=== PATIENT | female | born 1945 | race African-American/Black ===

== ENCOUNTER 2019-09-11 14:50 | Emergency (ER) | payer OTHER ==
[~2019-09-11] VITALS: Ht 170.2 cm; Wt 100.0 kg
[~2019-09-11 14:50] MED LIST: ASPIRIN; ATENOLOL; LISINOPRIL; METFORMIN
[2019-09-11] MEDS ORDERED: ASPIRIN 81MG TABLET PO ONE (17:00)
[2019-09-11 17:30] LABS: BASOPHILS % 0.8 % (0.0-2.0); EOSINOPHILS % 0.7 % (0.0-5.0); HEMATOCRIT. 38.2 % (36.0-48.0); HEMOGLOBIN. 12.6 g/dL (12.0-16.0); MEAN CORPUSCULAR HEMOGLOBIN 28.9 pg (28.0-32.0); MEAN CORPUSCULAR VOLUME 87.4 fL (81.0-99.0); MEAN PLATELET VOLUME 8.5 fl (7.4-10.4); MONOCYTES % 7.1 % (2.0-8.0); NEUTROPHILS % 51.4 % (40.0-76.0); PLATELET 215 x1000/uL (130-400); RED BLOOD CELL COUNT 4.37 mill/uL (4.2-5.4); RED CELL DISTRIBUTION WIDTH 14.4 % (11.6-14.6)
[2019-09-11 17:38] LABS: CHLORIDE 106 mEq/L (98-107)
[2019-09-11 19:41] VITALS: BP 151/68
== END 2019-09-11 20:49 | disposition short-term general hospital (02) ==
LOC: ER 15:00
DX: R07.9 Chest pain, unspecified (principal); E11.9 Type 2 diabetes mellitus without complications; J44.9 Chronic obstructive pulmonary disease, unspecified; I10 Essential (primary) hypertension; Z79.82 Long term (current) use of aspirin; Z91.010 Allergy to peanuts
CPT/HCPCS: 36415; 71045; 80053; 82962; 83880; 84443; 84484; 85025; 93005; 99285; Z7610

== ENCOUNTER 2025-05-09 17:31 | Inpatient (IN) | payer OTHER ==
[~2025-05-09] VITALS: Ht 175.3 cm; Wt 100.4 kg
[2025-05-09 17:36] VITALS: O2SAT 99
[2025-05-09 19:12] LABS: BASOPHILS % 0.6 % (0.0-2.0); EOSINOPHILS % 0.8 % (0.0-5.0); HEMATOCRIT. 42.8 % (36.0-48.0); HEMOGLOBIN. 14.1 g/dL (12.0-16.0); LYMPHOCYTES % 36.8 % (20.0-50.0); MEAN PLATELET VOLUME 9.1 fl (7.4-10.4); MONOCYTES % 7.3 % (2.0-8.0); NEUTROPHILS % 54.5 % (40.0-76.0); PLATELET 196 x1000/uL (130-400); RED BLOOD CELL COUNT 4.92 mill/uL (4.2-5.4); RED CELL DISTRIBUTION WIDTH 13.7 % (11.6-14.6)
[2025-05-09] MEDS: PANTOPRAZOLE SODIUM 40 MG/VIAL IV ONE (19:23)
[2025-05-09] MEDS: MAGNESIUM/ALUMINUM HYDROXIDE/SIMETHICONE 30ML UDC PO ONE (19:23)
[2025-05-09 19:26] LABS: CREATININE 1.0 mg/dL (0.6-1.0); UREA NITROGEN BLOOD 10 mg/dL (9-23)
[2025-05-09 19:27] LABS: ASPARTATE AMINOTRANSFERASE 16 IU/L (<34)
[2025-05-09 19:28] LABS: BILIRUBIN DIRECT 0.3 mg/dL (<=3.0); BILIRUBIN TOTAL 1.4 mg/dL (0.1-1.0); PROTEIN TOTAL 7.5 g/dL (6.0-8.3)
[2025-05-09 19:32] LABS: TROPONIN I HIGH SENSITIVITY 48 ng/L (3.0-34)
[2025-05-09] MEDS ORDERED: HEPARIN 25,000 UNITS PREMIX 250 ML IV PRN (20:45)
[2025-05-09] MEDS ORDERED: HEPARIN 5000 UNITS/ML VIAL IV SCH (20:45)
[2025-05-09] MEDS ORDERED: IPRATROPIUM/ALBUTEROL 0.5-3(2.5)MG/3ML NEB NEB PRN (21:00)
[2025-05-09] MEDS ORDERED: ONDANSETRON HCL 4MG/2ML INJ IV PRN (21:00)
[2025-05-09 21:10] LABS: TROPONIN I HIGH SENSITIVITY 53 ng/L (3.0-34)
[2025-05-09] MEDS: HEPARIN 80 UNITS/KG BOLUS IV SCH (21:24)
[2025-05-09] MEDS ORDERED: HEPARIN BOLUS PRN aPTT <36 IV (21:30)
[2025-05-09] MEDS ORDERED: HEPARIN BOLUS PRN aPTT 37-44 IV (21:30)
[2025-05-09] MEDS: HEPARIN 25,000 UNITS PREMIX 250 ML IV SCH (21:34)
[2025-05-09 21:49] LABS: BASOPHILS % 0.6 % (0.0-2.0); EOSINOPHILS % 0.6 % (0.0-5.0); HEMATOCRIT. 43.1 % (36.0-48.0); HEMOGLOBIN. 14.5 g/dL (12.0-16.0); LYMPHOCYTES % 39.5 % (20.0-50.0); MEAN PLATELET VOLUME 9.2 fl (7.4-10.4); MONOCYTES % 7.6 % (2.0-8.0); NEUTROPHILS % 51.7 % (40.0-76.0); PLATELET 186 x1000/uL (130-400); RED BLOOD CELL COUNT 4.92 mill/uL (4.2-5.4); RED CELL DISTRIBUTION WIDTH 13.7 % (11.6-14.6)
[2025-05-09] MEDS ORDERED: IPRATROPIUM/ALBUTEROL 0.5-3(2.5)MG/3ML NEB HHN PRN (22:00)
[2025-05-09] MEDS ORDERED: HYDRALAZINE 20MG/ML VIAL IV PRN (22:00)
[2025-05-09] MEDS ORDERED: DEXTROSE 50% WATER 50ML SYRINGE IV PRN (22:00)
[2025-05-09 22:01] LABS: CREATININE 1.0 mg/dL (0.6-1.0)
[2025-05-09 22:02] LABS: UREA NITROGEN BLOOD 9 mg/dL (9-23)
[2025-05-09] MEDS: IOHEXOL-350 100 ML BOTTLE ONE (22:27)
[2025-05-09 22:57] LABS: TRIGLYCERIDE 94.0 mg/dL (0-150)
[2025-05-09 22:58] LABS: LDL CHOLESTEROL 145.0 mg/dL (5-100)
[2025-05-09 22:59] LABS: CREATINE KINASE MB FRACTION 1.3 ng/mL (0.5-3.6); PHOSPHORUS 2.5 mg/dL (2.5-4.9)
[2025-05-09 23:04] LABS: T4 FREE 1.2 ng/dL (0.89-1.76)
[2025-05-09 23:11] LABS: TROPONIN I HIGH SENSITIVITY 81.0 ng/L (3.0-34)
[2025-05-10] VITALS (62 sets, daily range): BP systolic 77–182; BP diastolic 37–142; PULSE 80–110; RESP 12–29; TEMP 36.7–36.9; O2SAT 85–97
[2025-05-10] MEDS ORDERED: BLOOD SUGAR DIAGNOSTIC STRIP TEST SCH
[2025-05-10] MEDS: AMLODIPINE 10MG TABLET PO SCH (01:11)
[2025-05-10] MEDS: LOSARTAN 50 MG TABLET PO SCH (01:12)
[2025-05-10] MEDS: INSULIN LISPRO 100 UNITS/ML SUBCUT SCH ×2 (01:13→08:33)
[2025-05-10] MEDS: MELATONIN 3MG TABLET PO SCH (01:20)
[2025-05-10 03:25] LABS: TROPONIN I HIGH SENSITIVITY 77 ng/L (3.0-34)
[2025-05-10 05:30] LABS: BASOPHILS % 0.4 % (0.0-2.0); EOSINOPHILS % 0.7 % (0.0-5.0); HEMATOCRIT. 40.1 % (36.0-48.0); HEMOGLOBIN. 13.1 g/dL (12.0-16.0); LYMPHOCYTES % 50.3 % (20.0-50.0); MEAN PLATELET VOLUME 9.5 fl (7.4-10.4); MONOCYTES % 6.2 % (2.0-8.0); NEUTROPHILS % 42.4 % (40.0-76.0); PLATELET 190 x1000/uL (130-400); RED BLOOD CELL COUNT 4.61 mill/uL (4.2-5.4); RED CELL DISTRIBUTION WIDTH 13.9 % (11.6-14.6)
[2025-05-10 05:40] LABS: CREATININE 1.0 mg/dL (0.6-1.0)
[2025-05-10 05:41] LABS: UREA NITROGEN BLOOD 10 mg/dL (9-23)
[2025-05-10 05:42] LABS: ASPARTATE AMINOTRANSFERASE 12 IU/L (<34)
[2025-05-10 05:43] LABS: BILIRUBIN TOTAL 1.4 mg/dL (0.1-1.0); PROTEIN TOTAL 6.6 g/dL (6.0-8.3)
[2025-05-10 06:05] LABS: TROPONIN I HIGH SENSITIVITY 62 ng/L (3.0-34)
[2025-05-10] MEDS ORDERED: INSULIN LISPRO 100 UNITS/ML SUBCUT SCH (08:20)
[2025-05-10] MEDS: BLOOD SUGAR DIAGNOSTIC STRIP TEST SCH (08:27)
[2025-05-10] MEDS: PANTOPRAZOLE SODIUM 40 MG/VIAL IV SCH (08:32)
[2025-05-10 09:02] LABS: BG BASE EXCESS 2.0 mmol/L (-2.0-3.0); BG CARBOXYHEMOGLOBIN 0.9 % (0.5-1.5); BG DEOXYHEMOGLOBIN 5.7 % (0.0-5.0); BG FLOW(L/min) 0 L/min; BG HCO3 ACT 25.1 mmol/L (21.0-28.0); BG METHEMOGLOBIN 0.3 % (0.5-1.5); BG OXYGEN SATURATION 94.2 % (94.0-98.0); BG OXYHEMOGLOBIN 93.1 % (94.0-98.0); BG PCO2 34.5 mmHg (32.0-45.0); BG PH 7.479 (7.350-7.450); BG PO2 67.6 mmHg (83.0-108.0); BG SAMPLE SITE RIGHT RADIAL; BG TOTAL HEMOGLOBIN 14.0 g/dL (12.0-16.0); BG VENT MODE ROOM AIR
[2025-05-10] MEDS: INSULIN GLARGINE 100 UNITS/ML SUBCUT SCH (10:17)
[2025-05-10 13:21] LABS: TROPONIN I HIGH SENSITIVITY 31 ng/L (3.0-34)
[2025-05-10 20:08] LABS: TROPONIN I HIGH SENSITIVITY 28 ng/L (3.0-34)
[2025-05-10] MEDS: ATORVASTATIN CALCIUM 40MG TABLET PO SCH (20:45)
[2025-05-11] VITALS (48 sets, daily range): BP systolic 79–153; BP diastolic 27–113; PULSE 62–91; RESP 11–31; TEMP 36.8–37.4; O2SAT 90–98
[2025-05-11 01:39] LABS: TROPONIN I HIGH SENSITIVITY 20 ng/L (3.0-34)
[2025-05-11 06:20] LABS: BASOPHILS % 0.5 % (0.0-2.0); EOSINOPHILS % 1.2 % (0.0-5.0); HEMATOCRIT. 40.3 % (36.0-48.0); HEMOGLOBIN. 13.5 g/dL (12.0-16.0); LYMPHOCYTES % 58.0 % (20.0-50.0); MEAN PLATELET VOLUME 9.7 fl (7.4-10.4); MONOCYTES % 8.1 % (2.0-8.0); NEUTROPHILS % 32.2 % (40.0-76.0); PLATELET 188 x1000/uL (130-400); RED BLOOD CELL COUNT 4.59 mill/uL (4.2-5.4); RED CELL DISTRIBUTION WIDTH 13.9 % (11.6-14.6)
[2025-05-11 06:33] LABS: TROPONIN I HIGH SENSITIVITY 16 ng/L (3.0-34)
[2025-05-11 06:34] LABS: CREATININE 1.1 mg/dL (0.6-1.0)
[2025-05-11 06:35] LABS: UREA NITROGEN BLOOD 10 mg/dL (9-23)
[2025-05-11 06:36] LABS: ASPARTATE AMINOTRANSFERASE 13 IU/L (<34)
[2025-05-11 06:37] LABS: BILIRUBIN TOTAL 1.3 mg/dL (0.1-1.0); PROTEIN TOTAL 6.7 g/dL (6.0-8.3)
[2025-05-11] MEDS ORDERED: LIDOCAINE HCL 1% 20ML VIAL ONE (07:24)
[2025-05-11] MEDS ORDERED: HEPARIN 1000 UNITS/ML 10ML ONE (07:24)
[2025-05-11] MEDS ORDERED: IODIXANOL 320MG/ML 100 ML BOTTLE IV ONE ×2 (07:24→09:34)
[2025-05-11] MEDS ORDERED: FENTANYL CITRATE/PF 50MCG/ML 2ML VIAL ONE (08:25)
[2025-05-11] MEDS ORDERED: MIDAZOLAM HCL 2 MG/2 ML VIAL ONE (08:26)
[2025-05-11 09:18] LABS: TRIGLYCERIDE 164.0 mg/dL (0-150)
[2025-05-11 09:19] LABS: LDL CHOLESTEROL 134.0 mg/dL (5-100)
[2025-05-11 09:23] LABS: T4 FREE 1.07 ng/dL (0.89-1.76)
[2025-05-11 13:19] LABS: TROPONIN I HIGH SENSITIVITY 118 ng/L (3.0-34)
[2025-05-11 21:30] LABS: TROPONIN I HIGH SENSITIVITY 98 ng/L (3.0-34)
[2025-05-12] VITALS (48 sets, daily range): BP systolic 74–145; BP diastolic 29–114; PULSE 68–93; RESP 9–26; TEMP 36.7–36.9; O2SAT 92–100
[2025-05-12] MEDS ORDERED: AMLO10TA80 PO (01:15)
[2025-05-12] MEDS ORDERED: LOSA50TA41 PO (01:15)
[2025-05-12] MEDS ORDERED: ERGO1250 PO (01:15)
[2025-05-12] MEDS ORDERED: ATOR-2 PO (01:15)
[2025-05-12 06:16] LABS: BASOPHILS % 0.4 % (0.0-2.0); EOSINOPHILS % 1.7 % (0.0-5.0); HEMATOCRIT. 37.5 % (36.0-48.0); HEMOGLOBIN. 12.0 g/dL (12.0-16.0); LYMPHOCYTES % 49.4 % (20.0-50.0); MEAN PLATELET VOLUME 9.6 fl (7.4-10.4); MONOCYTES % 7.2 % (2.0-8.0); NEUTROPHILS % 41.3 % (40.0-76.0); PLATELET 153 x1000/uL (130-400); RED BLOOD CELL COUNT 4.25 mill/uL (4.2-5.4); RED CELL DISTRIBUTION WIDTH 13.8 % (11.6-14.6)
[2025-05-12 06:46] LABS: CREATININE 1.0 mg/dL (0.6-1.0); UREA NITROGEN BLOOD 9 mg/dL (9-23)
[2025-05-12] MEDS: APIXABAN 5 MG TABLET PO SCH (10:02)
[2025-05-12] MEDS ORDERED: MAGNESIUM HYDROXIDE 400MG/5ML 30ML UDC PO PRN (22:45)
[2025-05-12] MEDS: ACETAMINOPHEN 325MG TABLET PO PRN (23:29)
[2025-05-12] MEDS: SENNOSIDES/DOCUSATE SOD 8.6/50MG TABLET PO PRN (23:30)
[2025-05-13] VITALS (7 sets, daily range): BP systolic 105–125; BP diastolic 53–74; PULSE 69–94; RESP 12–21; TEMP 36.6–36.9; O2SAT 95–99
[2025-05-13 10:50] LABS: BASOPHILS % 0.3 % (0.0-2.0); EOSINOPHILS % 1.4 % (0.0-5.0); HEMATOCRIT. 35.2 % (36.0-48.0); HEMOGLOBIN. 11.6 g/dL (12.0-16.0); LYMPHOCYTES % 45.9 % (20.0-50.0); MEAN PLATELET VOLUME 9.8 fl (7.4-10.4); MONOCYTES % 8.4 % (2.0-8.0); NEUTROPHILS % 44.0 % (40.0-76.0); PLATELET 186 x1000/uL (130-400); RED BLOOD CELL COUNT 4.03 mill/uL (4.2-5.4); RED CELL DISTRIBUTION WIDTH 13.9 % (11.6-14.6)
[2025-05-13 11:04] LABS: CREATININE 1.0 mg/dL (0.6-1.0); UREA NITROGEN BLOOD 12 mg/dL (9-23)
[2025-05-19] MEDS ORDERED: APIXABAN 5 MG TABLET PO SCH (09:00)
== END 2025-05-13 22:26 | DRG 164 ==
LOC: ER 17:31 → CVICU 21:01 → EDBEDREQTM 21:03 → EDBEDREQ 21:03 → EDBEDREQSVC 21:03 → ENRESERV 23:28 → CVICU 05-11 21:39 → 3WST 05-12 23:03
PROVIDERS: ADMIT Internal Medicine; ATTEND Internal Medicine
PROC: 02CR3ZZ Extirpation of Matter from Left Pulmonary Artery, Percutaneous Approach (ICD-10-PCS; principal; 2025-05-11)
PROC: 4A023N6 Measurement of Cardiac Sampling and Pressure, Right Heart, Percutaneous Approach (ICD-10-PCS; 2025-05-11)
PROC: B31S1ZZ Fluoroscopy of Right Pulmonary Artery using Low Osmolar Contrast (ICD-10-PCS; 2025-05-11)
PROC: B31T1ZZ Fluoroscopy of Left Pulmonary Artery using Low Osmolar Contrast (ICD-10-PCS; 2025-05-11)
PROC: 03JY3ZZ Inspection of Upper Artery, Percutaneous Approach (ICD-10-PCS; 2025-05-11)
DX: I26.09 Other pulmonary embolism with acute cor pulmonale (principal); I82.432 Acute embolism and thrombosis of left popliteal vein; I10 Essential (primary) hypertension; E80.6 Other disorders of bilirubin metabolism; E11.65 Type 2 diabetes mellitus with hyperglycemia; Z20.822 Contact with and (suspected) exposure to COVID-19; E78.5 Hyperlipidemia, unspecified; Z88.0 Allergy status to penicillin; Z87.891 Personal history of nicotine dependence; Z79.4 Long term (current) use of insulin; Z79.01 Long term (current) use of anticoagulants; Z79.899 Other long term (current) drug therapy
CPT/HCPCS: 36415; 36600; 37184; 37185; 71045; 71275; 75743; 75825; 80048; 80053; 80061; 80076; 81403; 81407; 81479; 82375; 82550; 82553; 82805; 82962; 83036; 83605; 83735; 83880; 84100; 84145; 84439; 84443; 84484; 85025; 85303; 85347; 85379; 87426; 93005; 93306; 93970; 96374; 96375; 99285; A4606; C1769; C1887; C1893; J0360; J1644; J1815; J2003; J2250; J2470; J3010; Q9967; C1757; C1894